=== PATIENT | female | born 1950 | race Caucasian/White ===

== ENCOUNTER 2021-11-19 23:20 | Emergency (ER) | payer MEDICARE, SELFPAY ==
[2021-11-19 23:28] VITALS: BP 195/95; PULSE 58; RESP 18; TEMP 36.7; O2SAT 99
[2021-11-20] VITALS (12 sets, daily range): BP systolic 170–200; BP diastolic 84–126; PULSE 49–60; RESP 15–23; O2SAT 95–98
[2021-11-20 01:14] LABS: Add Manual Diff / Slide Review NO; Basophils Absolute Auto 100 /uL (0-100); Basophils Percent Auto 1.4 % (0-2); Eosinophils Absolute Auto 400 /uL (0-450); Eosinophils Percent Auto 6.5 % (2-4); Hematocrit 42.7 % (36-46); Hemoglobin 14.3 g/dL (12.0-16.0); Lymphocytes Absolute Auto 1800 /uL (1100-4500); Lymphocytes Percent Auto 27.3 % (25-40); Mean Corpuscular HGB Conc 33.5 % (30-36); Mean Corpuscular Hemoglobin 30.5 PG (26-34); Monocytes Absolute Auto 500 /uL (0-900); Monocytes Percent Auto 7.5 % (3-14); Neutrophils Absolute Auto 3700 /uL (1500-7000); Neutrophils Percent Auto 57.3 % (50-75); Platelet Count 250 X10^3/uL (150-400); Red Cell Distribution Width 13.7 % (11.6-14.8); White Blood Cell Count 6.5 X10^3/uL (4.5-11.0)
[2021-11-20 01:21] LABS: Alanine Aminotransferase 340 IU/L (<35); Albumin 4.1 g/dL (3.5-5.0); Albumin Globulin Ratio 1.5 (1.0-2.8); Alkaline Phosphatase 159 U/L (38-126); Aspartate Aminotransferase 141 IU/L (14-36); BUN Creatinine Ratio 13.8 (6-22); Bilirubin Total 1.2 mg/dL (0.2-1.3); Blood Urea Nitrogen 13 mg/dL (7-17); Calcium 9.1 mg/dL (8.4-10.2); Carbon Dioxide 26 mmol/L (22-32); Chloride 103 mmol/L (98-107); Creatine Kinase 83 U/L (30-135); Estimated Glomerular Filt Rate > 60 mL/min (>60); Globulin 2.8 g/dL (1.7-4.1); Glucose 93 mg/dL (80-110); HEMOLYSIS < 15 (0-50); Potassium 3.9 mmol/L (3.4-5.1); Sodium 138 mmol/L (137-145); Total Protein 6.9 g/dL (6.3-8.2)
[2021-11-20 01:33] LABS: Troponin I < 0.012 ng/mL (0.01-0.034)
--- NOTE | 2021-11-20 01:37 | ED.GENADULT ---
HPI - General Adult General Chief complaint: Hypertension Stated complaint: HIGH BLOOD PRESSURE Time Seen by Provider: 11/19/21 23:22 Source: patient Mode of arrival: Ambulatory History of Present Illness HPI narrative: 71-year-old female nonsmoker with history of hypertension and hypothyroid presents with her significant other for evaluation of a mild headache and elevated blood pressure. She was seen and evaluated earlier today at a clinic on [facility] and started on lisinopril 10 mg and encouraged to present to the emergency department for evaluation. She denies any blurred vision, trouble speech or dizziness. She has no chest pain or shortness of breath. She denies any nausea, vomiting or diarrhea. She is been taking her medications as directed. She is under the care of a operations forester in [facility] and has had recent changes in her medications due to episodes of bradycardia. Patient has not yet had her Losartan 100mg tonight. BP has been in the low 200s. Upon arrival to the ED labs were drawn and she was encouraged to take her Losartan Related Data Home Medications Medication Instructions Recorded Confirmed atorvastatin 40 mg tablet 40 mg PO DAILY 11/19/21 11/20/21 levothyroxine 125 mcg capsule 125 mcg PO DAILY 11/19/21 11/20/21 losartan 100 mg tablet 100 mg PO DAILY 11/19/21 11/20/21 verapamil 120 mg tablet 120 mg PO DAILY 11/19/21 11/20/21 Previous Rx's Medication Instructions Recorded hydralazine 25 mg tablet 25 mg PO TID #60 tabs 11/20/21 hydralazine 25 mg tablet 25 mg PO TID #60 tabs 11/20/21 Allergies Allergy/AdvReac Type Severity Reaction Status Date / Time hydrochlorothiazide AdvReac Mild Light Verified 11/19/21 14:44 headedness codeine AdvReac Hallucinati Verified 11/19/21 14:25 ng Review of Systems Review of Systems Narrative: GENERAL: Denies chills, fatigue, malaise, fever, sweats. HEENT: Denies sinus pain, ear pain, sore throat, difficulty swallowing, dizziness. RESPIRATORY: Denies dyspnea, cough, wheezing, hemoptysis, sputum. CARDIOVASCULAR: Denies chest pain, palpitations, orthopnea, edema, GASTROINTESTINAL: Denies nausea, vomiting, abdominal pain, diarrhea, constipation, melena. : Denies dysuria, frequency, incontinence, hematuria, urinary retention. MUSCULOSKELETAL: denies weakness, joint pain, or bony pain SKIN: Denies rash, skin lesions, or other NEUROLOGIC: See HPI PSYCHIATRIC: No concerning psychosocial issues. 12 point review of systems is negative except for those stated above Patient History Social History Smoking Status: Never smoker Smoking Status: Never smoker alcohol intake frequency: a few times a month Substance Use Type: does not use Exam Narrative Exam Narrative: GENERAL: 71[] year old patient appears stated age. Well-developed patient, in mild distress. HEAD: Atraumatic. Normocephalic. EYES: Pupils equal round and reactive. Extraocular motions intact. No scleral icterus. No injection or drainage. ENT: Nose without bleeding, purulent drainage. Throat without erythema, tonsillar hypertrophy or exudate. Airway patent. NECK: Trachea midline. Non tender CARDIOVASCULAR: Regular rate and rhythm without murmurs, gallops, or rubs. RESPIRATORY: Clear to auscultation. Breath sounds equal bilaterally. No wheezes, rales, or rhonchi. GASTROINTESTINAL: Abdomen soft, non-tender, nondistended. EXTREMITIES: No edema or joint tenderness. BACK: Nontender without deformity or crepitance. No flank tenderness. NEURO: AOx3. SKIN: No rash or erythema of visible areas Initial Vital Signs Initial Vital Signs: Vital Signs Temperature 98.1 F 11/19/21 23:28 Pulse Rate 58 L 11/19/21 23:28 Respiratory Rate 18 11/19/21 23:28 Blood Pressure 195/95 H 11/19/21 23:28 Pulse Oximetry 99 11/19/21 23:28 Oxygen Delivery Method 11/19/21 23:28 Course Orders Ordered: ED Orders 11/20/21 00:58 Complete Blood Count AUTO DIFF Stat Comprehensive Metabolic Panel Stat Troponin & CK Cardiac Panel Stat Reevaluation(s) Reevaluation #1: BP down to the 170s (down from 190s) Consultations Consultation #1: call to Dr. Fox (Cardiology in [place]) to discuss. His partner Dr. Hare reviewed the history, physical and recent visits. Recommends adding hydralazine, following closely upon her return and typical return precautions Vital Signs Vital signs: Vital Signs - 8 hr 11/19/21 23:28 11/20/21 00:58 11/20/21 00:58 Temperature 98.1 F Pulse Rate 58 L 49 L Respiratory Rate 18 20 Blood Pressure 195/95 H 183/89 H Pulse Oximetry 99 97 Oxygen Delivery Method Room Air 11/20/21 01:00 11/20/21 01:00 11/20/21 01:21 Temperature Pulse Rate 50 L 51 L Respiratory Rate 17 22 Blood Pressure 195/95 H Pulse Oximetry 97 97 Oxygen Delivery Method 11/20/21 01:21 11/20/21 01:30 11/20/21 01:41 Temperature Pulse Rate 57 L Respiratory Rate 20 Blood Pressure 195/90 H 173/84 H Pulse Oximetry 97 Oxygen Delivery Method 11/20/21 01:41 11/20/21 02:00 11/20/21 02:01 Temperature Pulse Rate 53 L 57 L 57 L Respiratory Rate 19 19 23 Blood Pressure Pulse Oximetry 96 98 96 Oxygen Delivery Method 11/20/21 02:01 11/20/21 02:21 11/20/21 02:21 Temperature Pulse Rate 60 Respiratory Rate 17 Blood Pressure 200/88 H 194/87 H Pulse Oximetry 98 Oxygen Delivery Method 11/20/21 02:30 11/20/21 02:41 11/20/21 02:41 Temperature Pulse Rate 56 L 55 L Respiratory Rate 15 18 Blood Pressure 170/126 H Pulse Oximetry 96 96 Oxygen Delivery Method 11/20/21 03:00 11/20/21 03:00 11/20/21 03:20 Temperature Pulse Rate 56 L 57 L Respiratory Rate 17 22 Blood Pressure 178/87 H Pulse Oximetry 95 96 Oxygen Delivery Method 11/20/21 03:20 Temperature Pulse Rate Respiratory Rate Blood Pressure 189/93 H Pulse Oximetry Oxygen Delivery Method Medical Decision Making Lab Data Result diagrams: 11/20/21 00:58 11/20/21 00:58 Labs: Lab Results 11/20/21 11/20/21 Range/Units 00:58 00:58 WBC 6.5 (4.5-11.0) X10^3/uL RBC 4.70 (4.0-5.2) X10^6/uL Hgb 14.3 (12.0-16.0) g/dL Hct 42.7 (36-46) % MCV 91.0 (80-100) fL MCH 30.5 (26-34) PG MCHC 33.5 (30-36) % RDW 13.7 (11.6-14.8) % Plt Count 250 (150-400) X10^3/uL Neut % (Auto) 57.3 (50-75) % Lymph % (Auto) 27.3 (25-40) % [place] % (Auto) 7.5 (3-14) % Eos % (Auto) 6.5 H (2-4) % Baso % (Auto) 1.4 (0-2) % Neut # (Auto) 3700 (5703-9528) /uL Lymph # (Auto) 1800 (3374-0759) /uL [place] # (Auto) 500 (0-900) /uL Eos # (Auto) 400 (0-450) /uL Baso # (Auto) 100 (0-100) /uL Sodium 138 (137-145) mmol/L Potassium 3.9 (3.4-5.1) mmol/L Chloride 103 (98-107) mmol/L Carbon Dioxide 26 (22-32) mmol/L BUN 13 (7-17) mg/dL Creatinine 0.94 (0.52-1.04) mg/dL Estimated GFR > 60 (>60) mL/min BUN/Creatinine Ratio 13.8 (6-22) Glucose 93 (80-110) mg/dL Calcium 9.1 (8.4-10.2) mg/dL Total Bilirubin 1.2 (0.2-1.3) mg/dL AST 141 H (14-36) IU/L ALT 340 H (<35) IU/L Alkaline Phosphatase 159 H (38-126) U/L Total Creatine Kinase 83 (30-135) U/L CK-MB (CK-2) TNP CK-MB (CK-2) Rel Index TNP Troponin I < 0.012 (0.01-0.034) ng/mL Total Protein 6.9 (6.3-8.2) g/dL Albumin 4.1 (3.5-5.0) g/dL Globulin 2.8 (1.7-4.1) g/dL Albumin/Globulin Ratio 1.5 (1.0-2.8) Discharge Plan Departure Patient Disposition: Home Clinical Impression: Hypertension Instructions: DI for High Blood Pressure Activity Restrictions/Additional Instructions: *You have been diagnosed with [asymptomatic hypertension] *What to do: *Please continue to take your regular medications as directed. [ x] New medication prescriptions sent to your pharmacy: [ [facility] in [place]] [ ] New medication written as a paper prescription [ ] No new medications given *Please follow up with your primary care provider in 2-3 days, call for an appointment. Let them know you were seen in the Emergency Department and that we ask that you be seen in follow up. We will electronically transmit a record of today's note if your PCP is in our system *Return to Emergency Department if you should have any new, worsening or concerning symptoms, such as [fever greater than 101 F, shaking chills, worsening pain, persistent vomiting or other bothersome symptoms] Prescriptions: New hydralazine 25 mg tablet 25 mg PO TID Qty: 60 0RF hydralazine 25 mg tablet 25 mg PO TID Qty: 60 0RF No Action levothyroxine 125 mcg capsule 125 mcg PO DAILY losartan 100 mg tablet 100 mg PO DAILY verapamil 120 mg tablet 120 mg PO DAILY atorvastatin 40 mg tablet 40 mg PO DAILY Referrals: Nadia Villar PA-C [Primary Care Provider] - Visit Report Forms: Patient Portal/API
== END 2021-11-20 03:38 | disposition home or self-care (01) ==
PROVIDERS: Emergency Provider Emergency Medicine; PCP Physician Assistant
DX: I10 Essential (primary) hypertension (principal)
CPT/HCPCS: 80053; 82550; 84484; 85025; 99281; 99283